=== PATIENT | male | born 1960 | race Caucasian/White ===

== ENCOUNTER 2024-04-20 11:49 | Emergency (ER) | payer MEDICARE, MEDICAID, SELFPAY ==
--- NOTE | ~2024-04-20 | XR_ITS ---
EXAMINATION: XR ANKLE, RIGHT XR FOOT, RIGHT CLINICAL INFORMATION: Atraumatic pain/swelling to the heel. COMPARISON: None TECHNIQUE: AP, lateral, and mortise views of the right ankle and AP, lateral, and oblique views of the right foot. FINDINGS: RIGHT ANKLE: Old healed distal tibial diaphyseal fracture with posteromedial offset of the distal fragment. Bones are osteopenic. No acute fractures. Mild soft tissue swelling. Ankle mortise is symmetric. RIGHT FOOT: Hallux valgus. Bones are osteopenic. No acute fractures. No focal areas of osteolysis. Mild generalized soft tissue swelling. Mild osteoarthritis of the first MTP joint and multiple interphalangeal joints as well as tarsometatarsal joints. No erosions. XR/XR foot RT min 3V IMPRESSION: 1. No acute osseous findings in the right ankle and foot. 2. Old healed distal tibial diaphyseal fracture. 3. Hallux valgus. 4. 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
--- NOTE | ~2024-04-20 | XR_ITS ---
EXAMINATION: XR ANKLE, RIGHT XR FOOT, RIGHT CLINICAL INFORMATION: Atraumatic pain/swelling to the heel. COMPARISON: None TECHNIQUE: AP, lateral, and mortise views of the right ankle and AP, lateral, and oblique views of the right foot. FINDINGS: RIGHT ANKLE: Old healed distal tibial diaphyseal fracture with posteromedial offset of the distal fragment. Bones are osteopenic. No acute fractures. Mild soft tissue swelling. Ankle mortise is symmetric. RIGHT FOOT: Hallux valgus. Bones are osteopenic. No acute fractures. No focal areas of osteolysis. Mild generalized soft tissue swelling. Mild osteoarthritis of the first MTP joint and multiple interphalangeal joints as well as tarsometatarsal joints. No erosions. XR/XR ankle RT min 3V IMPRESSION: 1. No acute osseous findings in the right ankle and foot. 2. Old healed distal tibial diaphyseal fracture. 3. Hallux valgus. 4. 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
--- NOTE | 2024-04-20 12:21 | ED.LOWEXIN ---
HPI - Extremity Injury (Lower) General Chief Complaint: Extremity Problem Stated Complaint: R foot pain Time Seen by Provider: 04/20/24 14:32 Source: patient Mode of arrival: ambulatory Limitations: no limitations History of Present Illness ED Provider: caridad FLOYD Narrative: Patient is a 64-year-old male presenting to the emergency department with complaint of pain to right lateral foot and ankle for the past 6 weeks. He states that around 4 months ago he slipped on a wet floor in the hallway of his apartment so he is unsure if this is related to his current symptoms. He has used Tylenol few times with little relief. States he does not like taking other medications. Denies difficulty with ambulation. Denies any weakness, numbness, tingling. BP noted to be elevated in triage, patient denies headache, vision changes, chest pain, dyspnea. States he does not currently have a PCP and has not seen one for around 15 years. Onset (ago): week(s) Treatments prior to arrival: other Related Data Allergies Allergy/AdvReac Type Severity Reaction Status Date / Time No Known Allergies Allergy Verified 04/20/24 12:27 Review of Systems Review of Systems: As per HPI. Yes all other systems are reviewed and are negative Constitutional: Constitutional: Reports as per HPI [facility] Social History Social History Advance Directives: No Advance Directives Information Provided: Yes Physical Exam Vital Signs: Vital Signs: Last Vital Signs Temp 97.9 F 04/20/24 13:37 Pulse 68 04/20/24 13:37 Resp 14 04/20/24 13:37 BP 180/107 H 04/20/24 13:37 Pulse Ox 98 04/20/24 13:37 O2 Del Method Room Air 04/20/24 13:37 BMI result Body Mass Index 28.7 Vital signs have been reviewed and appear to be correct. Blood pressure elevated. Heart rate normal. Respiratory rate normal. Temperature normal. Oxygen saturation normal. Const: General: cooperative and no acute distress Orientation/consciousness: oriented to person, oriented to place, oriented to time and patient oriented x3 Limitations: no limitations HEENT: Head: Yes normocephalic and Yes atraumatic Ears: external ears normal General nose exam: Normal external nose present Face and sinus: Yes face symmetric Mouth: oropharynx normal and moist mucous membranes Throat: Yes uvula midline Eyes: Pupils: Equal, round and reactive pupils present Neck: Neck: Yes normal visual inspection and Yes supple Resp: Effort & Inspection: normal respiratory effort and able to speak in complete sentences Auscultation: clear to auscultation bilaterally Cardio: Rate: regular rate Rhythm: regular rhythm Heart sounds: S1 normal heart sound present and S2 normal heart sound present GI: Palpation (GI): Soft to palpation and nontender Auscultation: normoactive bowel sounds : General: Yes no CVA tenderness Back/Spine/Pelvis: Back: no CVA tenderness Skin: General skin exam: elasticity normal and turgor normal Neuro: General: oriented to person, oriented to place, oriented to time, patient oriented x3, moves all extremities, no focal motor deficits and CN's II-XI intact bilaterally Cranial nerves: Yes Equal, round and reactive pupils present Cognition (Neuro): normal cognition Extrem: General: Yes full ROM, Yes no pedal edema and Yes no calf tenderness Right lower extremity: ankle Details: normal to inspection, no edema and normal ROM; no tenderness, no swelling, no unusual warmth, no ecchymosis, no crepitus and achilles tendon exam normal and foot Details: normal capillary refill, normal to inspection, toes with normal ROM, no edema, vascular exam Details: dorsalis pedis pulse present and posterior tibial pulse present, tendon exam Details: active flexion normal and active extension normal and motor-sensory exam Details: two point discrimination normal and light-touch normal; no tenderness and no ecchymosis Psych: Mental Status: mental status grossly normal Affect: normal affect Thought process: Normal thought process present Course Course Course Narrative: This is a Rapid Medical Examination (RME) performed by Bianka Martin PA-C in triage. Full HPI, ROS, assessment and treatment plan per primary provider in the Main ED. 64 yo male here for eval of right foot pain/ swelling s/p slip and fall x6 mo. states he may have twisted his ankle. pain exacerbated w/ ambulation. denies tingling/ numbness/ weakness of the LEs. took tylenol a few days ago w/o relief. no hx of gout. last saw PCP 15 yrs ago. requesting information to establish care w/ new PCP. + hypertensive to 174/108. not on BP meds. denies CP, sob, ARMSTRONG, dizziness, vision changes. Plan: xrs Medical Decision Making Medical Decision Making [facility] Narrative: Patient is a 64-year-old male presenting to the emergency department with complaint of pain to right lateral foot and ankle for the past 6 weeks. On exam patient is awake, A+Ox3, BP elevated, VS otherwise WNL, afebrile, normal neurological exam without focal deficits, physical exam findings as above. Given reported symptoms and physical exam findings, initial differential includes right ankle strain, sprain, fracture, osteoarthritis, gout. X-ray notable for no acute fractures, multifocal arthritis. My interpretation is in agreement with the radiologist's interpretation. Patient updated on results, offered treatment with steroids which patient declined. Also offered treatment with diclofenac topical gel which patient also declined. Discussed elevated blood pressure and patient states I think my blood pressure needs to be high. Discussed the risks of HTN with patient at length and advised patient that he should establish care with a PCP. Will refer to orthopedics for further management. Patient provided with FREDERICK wrap for support. Advised ice, elevation. Return precautions discussed. Patient verbalized understanding of and agreement with plan. Differential Diagnosis Differential Diagnoses: The differential diagnosis associated with the presentation includes as per [facility] Independent Interpretation I performed an independent interpretation of an: Plain X-Ray Interpretation: X-ray notable for no acute fractures, multifocal arthritis. Radiology Impression Discussion of test interpretation with radiology: I have reviewed the radiologist's reading. Radiologist Impression: FINDINGS: RIGHT ANKLE: Old healed distal tibial diaphyseal fracture with posteromedial offset of the distal fragment. Bones are osteopenic. No acute fractures. Mild soft tissue swelling. Ankle mortise is symmetric. RIGHT FOOT: Hallux valgus. Bones are osteopenic. No acute fractures. No focal areas of osteolysis. Mild generalized soft tissue swelling. Mild osteoarthritis of the first MTP joint and multiple interphalangeal joints as well as tarsometatarsal joints. No erosions. XR/XR foot RT min 3V IMPRESSION: 1. No acute osseous findings in the right ankle and foot. 2. Old healed distal tibial diaphyseal fracture. 3. Hallux valgus. 4. 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 External Record Review External record reviewed: Inpatient record, Office record and Outpatient record Prescription Management I considered prescription management with: Pain Medication (patient declined) and Other (patient declined) Discharge Plan Discharge Clinical Impression: Ankle pain, right Patient Disposition: Home, Self-Care Instructions: How to Use an Elastic Bandage (ED), Arthralgia (ED), Arthritis (ED) Additional Instructions: You were evaluated in the emergency department today for right ankle pain. Your x-rays did not show evidence of any acute fractures but you were noted to have arthritis in your foot. You were offered treatment with steroids which you declined. You were provided with an FREDERICK wrap in the ED today, you can use this for support. You are being referred to orthopedics for further evaluation and management of your symptoms. CALL THEIR OFFICE TO SCHEDULE AN APPOINTMENT, THEY WILL NOT CALL YOU. Return to the emergency department if you develop new weakness, numbness, change of color in your foot, or any other concerning symptoms. Referrals: [facility] [place] [facility] [Provider Group] Print Language: Romanian
[2024-04-20 12:22] VITALS: BP 174/108; PULSE 74; RESP 16; TEMP 37; O2SAT 99; BMI 28.7
[2024-04-20 13:37] VITALS: BP 180/107; PULSE 68; RESP 14; TEMP 36.6; O2SAT 98
[2024-04-20 15:20] VITALS: BP 171/98; PULSE 62; RESP 18; TEMP 36.6; O2SAT 99
[2024-04-20 15:24] VITALS: BP 171/98; PULSE 62; RESP 18; TEMP 36.6; O2SAT 99
== END 2024-04-20 15:24 | disposition home or self-care (01) ==
PROVIDERS: Emergency Provider Emergency Medicine
DX: M25.571 Pain in right ankle and joints of right foot (principal); M79.671 Pain in right foot; Z91.81 History of falling
CPT/HCPCS: 73610; 73630; 99283